=== PATIENT | female | born 1990 | race Caucasian/White ===

== ENCOUNTER 2018-11-20 02:54 | Day surgery (SDC) | payer BC ==
[2018-11-20 03:21] VITALS: BP 114/64; TEMP 98.1; BMI 28.2
[2018-11-20] MEDS ORDERED: Ondansetron ODT 8 MG TAB SL SCH (05:15)
[2018-11-20] MEDS ORDERED: Morphine 10 MG/ML VIAL IM SCH (05:15)
--- NOTE | 2018-11-20 08:41 | PRG ---
DATE OF SERVICE: 11/20/2018 PRIMARY POWER REACTOR SUPERVISOR: Shira Montes DO CHIEF COMPLAINT: Abdominal pain. HISTORY OF PRESENT ILLNESS: The patient is a 28-year-old G2, P1 female with an intrauterine , who presented to Labor and Delivery with increasing abdominal pain. She reports it began yesterday morning and began becoming more regular by the afternoon and this evening it has been about every 5 to 6 minutes apart. The patient denies any leakage of fluid or vaginal bleeding. She denies any complications with this . Denies fever, fall, headache, chest pain, shortness of breath, any significant nausea, vomiting, diarrhea, constipation, hip problems, knee problems, muscle weakness. Again, vaginal bleeding or urinary urgency. PAST MEDICAL HISTORY: Noncontributory. PAST SURGICAL HISTORY: Negative. ALLERGIES: LATEX. MEDICATIONS: vitamins. SOCIAL HISTORY: Denies drug, alcohol, or tobacco use. OB LABS: Blood type is O positive. Antibody screen is negative. VDRL is nonreactive. Hepatitis B surface antigen nonreactive in the first trimester. She is rubella immune. One-hour Gluco is 108 and third trimester VDRL is negative. Group B strep is negative. REVIEW OF SYSTEMS: Per HPI. PHYSICAL EXAMINATION: VITAL SIGNS: Blood pressure 114/64, heart rate of 90, temperature 98.6, respiratory rate 18. GENERAL: She appears to be in no acute distress. She is alert, oriented, cooperative, and pleasant to interact with. HEAD: Normocephalic, atraumatic. LUNGS: Clear to auscultation bilaterally. HEART: Has regular rate and rhythm. ABDOMEN: Gravid and soft. EXTREMITIES: Nontender, nonedematous. VULVA: Cervix is 470 -2 station, which is the same as reported at the beginning of the week. After 2 hours, the patient remains unchanged. heart tracing and NST for abdominal pain, baseline is noted to be in the 120s with moderate long-term variability, positive 15 x 15 accelerations, no decelerations. Contractions on tocometer showing irregular contraction pattern with contractions seeming to be 5 to 7 minutes apart. ASSESSMENT AND PLAN: The patient is a 28-year-old G2, P1 female with an intrauterine at 39 weeks gestation in likely latent labor. The patient has had no cervical change since Friday and is being discharged to home. Fetus has a reactive NST and category 1 tracing. She did go home with 8 mg of morphine IM and 8 mg of Zofran ODT with term precautions. Job ID: [id number]
== END 2018-11-20 05:30 | disposition home or self-care (01) ==
LOC: L&D/OP 02:54
PROVIDERS: ATTEND Obstetrics & Gynecology
DX: O99.89 Other specified diseases and conditions complicating pregnancy, childbirth and the puerperium (principal); R10.9 Unspecified abdominal pain; Z91.040 Latex allergy status; Z3A.39 39 weeks gestation of pregnancy
CPT/HCPCS: 99283; J2270

== ENCOUNTER 2018-11-21 08:55 | Inpatient (IN) | payer BC ==
[2018-11-21] MEDS ORDERED: Acetaminophen 500 MG TAB PO PRN (09:18)
[2018-11-21] MEDS ORDERED: Promethazine HCl 25 MG/ML VIAL IM PRN ×2 (09:18→10:22)
[2018-11-21] MEDS ORDERED: NS / Oxytocin 40 units/1000ml 1,000 ML IV PRN (09:18)
[2018-11-21] MEDS ORDERED: Lidocaine 1% (PF) 30 ML VIAL SC PRN (09:18)
[2018-11-21] MEDS ORDERED: Ondansetron PF 4 MG/2 ML Vial IVP PRN ×3 (09:18→12:12)
[2018-11-21] MEDS ORDERED: Lactated Ringer's 1,000 ML IV SCH (09:30)
[2018-11-21 09:32] VITALS: BMI 27.4
[2018-11-21] MEDS ORDERED: Fentanyl 4 mcg/Bup 0.1% Cadd 100 ML ONE (09:34)
--- NOTE | 2018-11-21 09:39 | PDOC.LDHP ---
Labor and Delivery H&P Allergies/Adverse Reactions: Allergies Allergy/AdvReac Type Severity Reaction Status Date / Time latex Allergy Mild Rash Verified 11/20/18 03:16 - Plan -: HPI: This is a 28 yo at 39.2 wks presenting for cxns and ROM. She states she noted the contractions about 6am when she woke up, 3 hours prior to arrival. She states that when she felt the contractions she could feel some water leaking which prompted her to come in for eval. She affirms movement. Denies MCCABE, visual changes, SOB, or swelling. History: OB hx: term w/o complications, 8lbs 1 oz PMH: neg PSH: neg Meds: PNV, claritin Soc Hx: denies smoking, alcohol, drugs Fam Hx: denies downs, congenital defects Blood type: 0+ Abs screen neg Hep b neg RPR/HIV neg Rubella immune GC/CT neg GBS: neg 1 hr GCT: 108 REVIEW OF SYSTEMS: Gen: no fever, chills, or sweats Neuro: no numbness/tingling, no weakness, denies headache Eyes: no visual changes ENT: no hearing changes, no sore throat, no runny nose Resp: no cough, no SOB, no wheeze Card: denies chest pain, no palpitations GI: no N/V/D, no abdominal pain aside from contractions : no dysuria, no hematuria MSK: no myalgias, no joint pain/stiffness Heme: no easy bruising/bleeding Skin: no rash, no erythema PHYSICAL EXAMINATION: General: NAD, alert and oriented x3 HEENT: PERRLA, EOMI, normal sclera, oropharynx without erythema or exudate Neck: Supple. Full ROM. Heart/Cardiovascular System: RRR, Cap refill < 3 seconds, no rub, no murmur Lungs/Respiratory System: clear to auscultation bilaterally. No increased work of breathing. Room air. Abdomen/Gastro-Intestinal System: no abdominal tenderness, normal bowel sounds, Gravid Extremities: Warm extremities. No cyanosis or edema. Neuro: No gross deficits appreciated. CN 2-12 grossly intact Psychiatry: Awake, Alert and cooperative with exam Skin: No lesions, rashes, or ulcers Musculoskeletal: Full ROM A/P: This is a 28 yo at 39.2 wks presenting for cxns and ROM. # Term in labor - /-2 at check yesterday, /- today, leakage of fluid with cough\ - GBS neg - ROM this AM - Reactive strip - Admit for labor PCP: Simon
[2018-11-21 09:40] LABS: Hemoglobin 12.7 g/dL (12.0-16.0); Mean Corpuscular HGB CONC 33.9 g/dL (32.0-36.0); Mean Corpuscular Hemoglobin 30.2 pg (27.0-31.0); Mean Corpuscular Volume 89.1 fL (78.0-98.0); Mean Platelet Volume 7.8 fL (7.4-10.4); Platelet Count 247 thou/uL (130-400); RBC Distribution Width 12.5 % (11.5-14.5); White Blood Cell (WBC) Count 11.1 thou/uL (4.8-10.8)
[2018-11-21 10:22] LABS: HBSAg Index 0.32 S/CO (0-0.99); Hep B Surf Ag Non-Reactive S/CO (NonReactive); Syphilis Antibody Nonreactive (Nonreactive); Syphilis Antibody Index 0.04 S/CO (<1.00 Non-Reactive)
[2018-11-21] MEDS ORDERED: Naloxone HCl 0.4 mg/ml Vial IVP PRN ×2 (10:22)
[2018-11-21] MEDS ORDERED: Lactated Ringer's 500 ML IV PRN (10:22)
[2018-11-21] MEDS ORDERED: diphenhydrAMINE 50 MG/ML VIAL IVP PRN (10:22)
[2018-11-21] MEDS ORDERED: Eucerin (Mineral Oil/Petrolatum,White) 30 gm Jar TOP PRN (10:22)
[2018-11-21] MEDS ORDERED: ePHEDrine/0.9% NaCl/PF SYRINGE 50 mg/10 ml SLOW IVP PRN (10:22)
[2018-11-21] MEDS ORDERED: Acetaminophen 325 MG TAB PO PRN (10:22)
[2018-11-21] MEDS ORDERED: Fentanyl 4 mcg/Bupivacaine 0.1% Cassette 100 ML EPIDURAL SCH (10:30)
[2018-11-21] MEDS ORDERED: Communication Order-Pharmacy FS SCH (10:30)
[2018-11-21] MEDS ORDERED: NS / Oxytocin 40 units/1000ml 1,000 ML ONE (11:40)
[2018-11-21] MEDS ORDERED: Adacel (T-DAP) 0.5 ML SYRINGE IM ONE (12:12)
[2018-11-21] MEDS ORDERED: Bisacodyl 10 MG SUPP PR PRN (12:12)
[2018-11-21] MEDS ORDERED: Benzocaine-Menthol 82.5 ML CAN TOP PRN (12:12)
[2018-11-21] MEDS ORDERED: Milk Of Magnesia 30 ML UDCUP PO PRN (12:12)
[2018-11-21] MEDS ORDERED: NS / Oxytocin 40 units/1000ml 1,000 ML IV SCH (12:15)
[2018-11-21] MEDS: Ferrous Sulfate 325 MG TAB PO SCH (18:13)
[2018-11-21] MEDS: Ibuprofen 800 MG TAB PO SCH ×2 (18:13→20:16)
[2018-11-21] MEDS: Docusate Calcium (SURFAK) 240 MG CAP PO SCH (20:16)
[2018-11-22] MEDS: Ibuprofen 800 MG TAB PO SCH (05:56)
[2018-11-22 06:42] LABS: Hemoglobin 11.8 g/dL (12.0-16.0); Mean Corpuscular HGB CONC 33.9 g/dL (32.0-36.0); Mean Corpuscular Hemoglobin 30.7 pg (27.0-31.0); Mean Corpuscular Volume 90.7 fL (78.0-98.0); Mean Platelet Volume 7.9 fL (7.4-10.4); Platelet Count 208 thou/uL (130-400); RBC Distribution Width 12.6 % (11.5-14.5); Red Blood Cell (RBC) Count 3.84 mill/uL (4.20-5.40); White Blood Cell (WBC) Count 14.8 thou/uL (4.8-10.8)
[2018-11-22] MEDS: Ferrous Sulfate 325 MG TAB PO SCH (07:52)
[2018-11-22] MEDS: Docusate Calcium (SURFAK) 240 MG CAP PO SCH (09:54)
--- NOTE | 2018-11-22 09:54 | DN ---
DATE OF PROCEDURE: 11/22/2018 DATE OF DELIVERY: 11/22/2018. The patient delivered a female at 39 weeks and 2 days on 11/21/2018 at 11:51 a.m. by an uncomplicated term spontaneous vaginal delivery. Apgars are 9 and 9. Weight is 3710 g. Placenta delivered spontaneously followed by Pitocin infusion. Estimated blood loss 200 mL. Quantitative blood loss 50 mL. There is a small right labial laceration with spontaneous hemostasis, not repaired. Delivering physician is Dr. Castellanos and Dr. Burt. Counts were correct. Mother and baby were stable in the room in the immediate . Job ID: [id number]
[2018-11-22 10:54] VITALS: BP 105/56; TEMP 97.5
--- NOTE | 2018-11-23 00:52 | DIS ---
DATE OF ADMISSION: 11/21/2018 DATE OF DISCHARGE: 11/22/2018 ADMITTING DIAGNOSES: 1. Intrauterine at 39 weeks. 2. Labor. DISCHARGE DIAGNOSES: 1. Intrauterine at 39 weeks. 2. Labor. 3. Status post term spontaneous vaginal delivery. PROCEDURE: Term spontaneous vaginal delivery. CONSULTATIONS: None. HOSPITAL COURSE: The patient is a 28-year-old female who presented to Labor and Delivery in active labor with cervical exam of 6 cm at 39 weeks gestation and rupture of membranes. The patient quickly progressed to complete +2 and delivered over intact perineum, a female . For complete details, please refer to the delivery note. The patient was sent to for recovery and for care. Today is day #1. The patient reports she is tolerating p.o., voiding on her own having decreased lochia and good pain control. The patient has expressed interest in discharge home, so the baby will be discharged. PHYSICAL EXAMINATION: VITAL SIGNS: This morning, blood pressure 90/53, temperature 97.9, pulse of 90, respiratory rate of 16. GENERAL: She appears to be in no acute distress. She is alert, oriented, cooperative, and pleasant to interact with. HEENT: Head is normocephalic and atraumatic. : Fundus is firm. The umbilicus -2. EXTREMITIES: Nontender, nonedematous. DISCHARGE INSTRUCTIONS: The patient will be discharged to home with ibuprofen. She has been given instructions to follow up with her primary OB, Dr. Montes in 6 weeks or sooner if she experiences fever, increasing pain, or bleeding. Job ID: [id number] MTDD
== END 2018-11-22 13:30 | disposition home or self-care (01) | DRG 807 ==
LOC: L&D/OP 08:55 → L&D 10:12 → 3SW 15:36
PROVIDERS: ADMIT Obstetrics & Gynecology; ATTEND Obstetrics & Gynecology
PROC: 10E0XZZ Delivery of Products of Conception, External Approach (ICD-10-PCS; principal; 2018-11-21)
DX: O70.0 First degree perineal laceration during delivery (principal); Z37.0 Single live birth; Z3A.39 39 weeks gestation of pregnancy
CPT/HCPCS: 36415; 51702; 85027; 86780; 86850; 86900; 86901; 87340; 99283; 99285; J2270